=== PATIENT | male | born 1950 | race Caucasian/White ===

== ENCOUNTER 2016-08-20 12:20 | Outpatient (CLI) | payer OTHER ==
[2013-02-17 13:40] VITALS: BMI 24.5
--- NOTE | 2016-08-20 13:34 | US ---
EXAM: ULTRASOUND LOWER EXTREMITY VENOUS DOPPLER EXAM HISTORY: Pain behind left knee. FINDINGS: Left lower extremity venous Doppler exam. Real time bhagat-scale, Doppler spectral analysis and color-flow Doppler imaging performed. The veins targeted for evaluation include the common fem oral, greater saphenous, profundus, femoral, popliteal, peroneal, anterior tibial and posterior tibi al. The evaluated veins demonstrated normal spontaneous flow and compression without evidence of t hrombosis. IMPRESSION: No venous thrombosis identified within the areas evaluated.
--- NOTE | 2016-08-20 14:02 | DI ---
EXAM: Three views of the left knee. History: Left knee pain. Findings: No acute fracture or dislocation. Joint spaces are preserved. Surgical clips seen withi n the medial soft tissues. Impression: No acute osseous abnormality and no degenerative joint disease.
== END 2016-08-20 12:21 | disposition home or self-care (01) ==
LOC: RAD 12:20
PROVIDERS: ATTEND Family Medicine
DX: M25.562 Pain in left knee (principal); M79.89 Other specified soft tissue disorders

== ENCOUNTER 2016-08-26 13:51 | Outpatient (CLI) ==
[2013-02-17 13:40] VITALS: BMI 24.5
--- NOTE | 2016-08-26 21:36 | MRI ---
EXAM: MRI left knee without contrast. HISTORY: Acute left knee pain. No left knee surgery reported.. TECHNIQUE: Using a local extremity coil on a high field strength magnet multiplanar multisequence M RI was performed of the left knee without intravenous or intra-articular gadolinium contrast.. COMPARISON: Three-view plain film examination left knee 08/20/2016. FINDINGS: Within the medial compartment the medial meniscus is intact without discrete surfacing me niscal tear. The medial compartment cartilage congruent without focal underlying subchondral edema. Within the lateral compartment lateral meniscus is intact without discrete surfacing meniscal tear. The lateral compartment cartilage congruent without focal underlying subchondral edema. Within the patellofemoral compartment the patella seated with intact patellar attachment of the medi al and lateral patellar retinaculum. Both the patellar and trochlear groove cartilage congruent wit hout underlying subchondral edema. Physiologic amount of fluid left knee joint. No osteochondral loose bodies. Intact anterior and po sterior cruciate ligament fibers of normal orientation. The extensor mechanism is intact. Distal q uadriceps tendinosis. . Patellar tendinosis. This is chronic. The medial collateral ligament as well as lateral collateral ligament complex and posterolateral corner intact. Atherosclerotic vascul ar disease. Artifact from vascular clips. IMPRESSION: No discrete surfacing meniscal tear. No acute fracture, stress fracture or bone erosions. No left effusion. Intact cruciate and collateral ligaments. Chronic distal quadriceps as well as patellar tendinosis. Atherosclerotic vascular disease. Artifact from vascular clips.
== END 2016-08-26 13:52 | disposition home or self-care (01) ==
LOC: RAD 13:51
PROVIDERS: ATTEND Family Medicine
DX: M25.562 Pain in left knee (principal)

== ENCOUNTER 2017-03-26 12:51 | Outpatient (CLI) | payer OTHER ==
[2013-02-17 13:40] VITALS: BMI 24.5
--- NOTE | 2017-03-27 09:24 | MRI ---
EXAM: MRI cervical spine without IV contrast. DATE: 26 March 2017. HISTORY: Neck pain. TECHNIQUE: Sagittal axial T1W and T2W sequences of the cervical spine along with sagittal IR and cor onal T2W sequences were obtained using 1.2 Denise magnet. No IV contrast. COMPARISON: C-spine series 02/17/2008. MRI T-spine 26 March 2017. MRI brain 26 February 2016. FINDINGS: There is no cervical scoliosis. No acute c-spine fracture, subluxation, osseous malignanc y, or jumped facet is apparent. Cervical vertebra are normal in height. T2W/T1W bone marrow signal is somewhat heterogeneous due to areas of fatty infiltration and degenerative endplate changes. T2W/ T1W bright, 4.8 x 6.6 x 9 mm focus in the anterior aspect of the C3 body could represent degenerative endplate changes vs hemangioma. T2W/T1W/IR bright, 5.8 x 8.8 x 8.8 mm focus in the left lateral asp ect of the C5 body is likely an atypical hemangioma. Intervertebral discs are normal in height. Cer vical and upper thoracic spinal cord reveals no syrinx, cord edema, myelomalacia, or neoplasm. Visible brainstem and cerebellum are unremarkable. T2W/T1W intermediate signal, 6.8 x 9 mm focus in the posterior aspect of the right maxillary sinus is likely a polyp. Visible mastoid air cells are n ormal. Trachea, larynx, and epiglottis are normal. A T2W bright, T1W nearly isointense, 9 x 10 mm f ocus is revealed in the right thyroid lobe. No submandibular or parotid gland neoplasm is apparent. Small cervical lymph nodes are observed without definitive lymphadenopathy. Neural apical lung mass , pneumonia, or pleural effusion is evident. Patchy peripheral density abutting the pleura at the [facility] lung apex on coronal image #11 is not optimally visualized. Segmental analysis: C2-3: Minor posterior disc bulge (1.2 mm AP) does not contact the cord. Canal is 40 mm AP. Each fo ramen is patent. C3-4: Minor posterior disc bulge (1.2 mm AP) does not contact the cord. Canal is 13.7 mm AP. Each foramen is patent. C4-5: Minor posterior disc bulge (1.2 mm AP) does not contact the cord. Canal is 14 mm AP. Each fo ramen is patent. C5-6: Broad posterior disc bulge (2.1 mm AP) does not contact the cord. Canal is 10.5 mm AP. Mild /moderate bilateral foraminal stenoses are due to uncinate hypertrophy, mild right facet arthropathy and minor left facet disease. C6-7: No disc protrusion or central stenosis. Slight bilateral foraminal narrowing is due to mild r ight and minor left facet arthropathy. C7-T1: Normal, except for bilateral foraminal T2W bright, T1W dark foci (4.5 x 6 mm right, 6.2 x 7.2 mm) likely representing perineural cyst vs dural ectasia. IMPRESSIONS: 1. C-spine minor/mild facet arthropathy and DDD. 2. No cervical cord compression or central stenosis. 3. Mild/moderate bilateral foraminal stenoses at C5-6. 4. Possible small polyp in the right maxillary sinus. 5. Right apical lung changes - likely scar tissue. Recommend current chest x-ray for comparison. Unexpected findin. Right thyroid lobe T2W bright nodule - not fully characterized. Recommend t hyroid US for further evaluation.
--- NOTE | 2017-03-27 10:15 | MRI ---
EXAM: MRI thoracic spine without IV contrast. DATE: 26 March 2017. HISTORY: Thoracic back pain. TECHNIQUE: Sagittal and axial T2W and T1W sequences of the thoracic spine along with sagittal IR and coronal T2W sequences were obtained using 1.2 Denise magnet. No IV contrast. COMPARISON: MRI C-spine 26 March 2017. PA/lateral chest 02/17/2013. FINDINGS: There are 12 thoracic vertebra with paired ribs. Slight rightward curvature the upper tho racic spine is noted. No acute T-spine fracture, subluxation, focal malignancy, or jumped facet is e vident. T2W/T1W/IR mild marrow heterogeneity is observed. Thoracic vertebra are normal in height. Intervertebral discs are normal in height. T2W/T1W bright, 3.5 mm focus in the T6 vertebral body may be focal fat deposition vs tiny hemangioma. A T2W bright, 1 millimeter diameter indentation of the anterior midline spinal cord crown T1 to T5 may be normal variation. At C5 midbody to the inferior e ndplate of T9 (12 cm), there is a T2W bright vertical column ranging in diameter from 0.5 mm to 2 mm located within the center of the spinal cord. No cord edema, neoplasm, or myelomalacia is identified. Visible thyroid gland, trachea, mainstem bronchi, thoracic esophagus and thoracic aorta are unremarka ble. No suspicious lung mass, pneumonia, or pleural effusion is demonstrated. Several small lymph n odes are identified in the pretracheal space and each david, without definitive lymphadenopathy. Mult iple sternal suture wires are present. Heart size appears upper normal. Visible portions of the fracisco er, gallbladder, pancreas, spleen, adrenal glands and kidneys reveal no distinct abnormality. Segmental analysis: T1-2: No disc protrusion, central stenosis, or foraminal stenosis. There is minor right facet arthr opathy. T2-3: No disc protrusion, central stenosis or foraminal stenosis. T3-4: No disc protrusion, central stenosis or foraminal stenosis. T4-5: No disc protrusion, central stenosis or foraminal stenosis. T5-6: No disc protrusion, central stenosis or foraminal stenosis. T6-7: No disc protrusion, central stenosis or foraminal stenosis. T7-8: Minimal posterior disc bulge (with midline annular fissure) does not cause cord compression, c entral stenosis or foraminal stenosis. T8-9: Small posterior disc bulge does not cause cord compression, central stenosis or foraminal sten osis. T9-10: No disc protrusion, central stenosis or foraminal stenosis. T10-11: No tear disc protrusion or central stenosis. There is mild left facet arthropathy. Each fo ramen is patent. T12-L1: No disc protrusion, central stenosis or foraminal stenosis. IMPRESSIONS: 1. T-spine minor rightward curvature, minor facet disease, and minor DDD. 2. No thoracic cord compression, central stenosis or foraminal stenosis. 3. Bone marrow heterogeneity - consider fatty infiltration. Given the subtle changes of IR sequence , tumor infiltrate process such as multiple myeloma might also be considered. Correlate with clinica l history and exam. 4. Small mediastinal /hilar lymph nodes, without definitive lymphadenopathy. 5. Previous median sternotomy.
== END 2017-03-26 12:52 | disposition home or self-care (01) ==
LOC: RAD 12:51
PROVIDERS: ATTEND Family Medicine
DX: M54.2 Cervicalgia (principal)

== ENCOUNTER 2017-04-03 14:11 | Outpatient (CLI) ==
[2013-02-17 13:40] VITALS: BMI 24.5
--- NOTE | 2017-04-03 14:47 | DI ---
EXAM: Chest two views HISTORY: Spot on lung COMPARISON: MRI cervical spine 03/26/2017 TECHNIQUE: Two views of the chest were performed FINDINGS: No airspace consolidation. Mild right apical nodularity probably represents scarring. Th ere is no pleural effusion or pneumothorax. The heart is normal in size. The mediastinal contour is normal, noting atherosclerosis. Median sternotomy wires.. There are no acute abnormalities of the bones. IMPRESSION: 1. No acute cardiopulmonary process. 2. Mild right apical nodularity probably represents scarring. Recommend follow-up radiographs in 6 mo nths to ensure stability or correlation with CT chest for further evaluation.
--- NOTE | 2017-04-03 14:54 | US ---
EXAM: Thyroid ultrasound HISTORY: Abnormal thyroid, abnormal MRI COMPARISON: MRI 03/26/2017 TECHNIQUE: Thyroid ultrasound was performed FINDINGS: Right thyroid measures 1.5 x 1.6 x 4.3 cm. Left thyroid measures 1.3 x 1.3 x 3.7 cm. Thy roid isthmus measures 0.2 cm. Thyroid normal in echogenicity and vascularity. In the right superior thyroid, there is a predominately cystic nodule with small solid component, with nodule measuring 0. 3 x 1.4 x 0.8 cm. In the right inferior thyroid, there is a cystic nodule measuring 0.6 x 0.6 x 0.5 cm. IMPRESSION: Right thyroid nodules as described. Recommend sonographic follow-up in 12 months for re evaluation.
== END 2017-04-03 14:12 | disposition home or self-care (01) ==
LOC: RAD 14:11
PROVIDERS: ATTEND Family Medicine
DX: R93.8 Abnormal findings on diagnostic imaging of other specified body structures (principal); R91.8 Other nonspecific abnormal finding of lung field

== ENCOUNTER 2017-08-27 12:08 | Outpatient (CLI) | payer OTHER ==
[2013-02-17 13:40] VITALS: BMI 24.5
--- NOTE | 2017-08-27 12:58 | DI ---
EXAM: Two views of the chest. History: Follow-up right apical scarring. Comparison: Chest radiograph 04/03/2017 Findings: Heart size is upper limits of normal. Sternotomy wires. No focal consolidation. No appr eciable pleural fluid and no pneumothorax. No change in the right apical scarring. Atherosclerotic vascular calcifications. Impression: No acute cardiopulmonary process. No change in the right apical scarring.
== END 2017-08-27 12:09 | disposition home or self-care (01) ==
LOC: RAD 12:08
PROVIDERS: ATTEND Family Medicine
DX: R93.8 Abnormal findings on diagnostic imaging of other specified body structures (principal)